=== PATIENT | male | born 1990 | race Two or more races ===

== ENCOUNTER 2025-06-04 11:43 | Inpatient (IN) | payer OTHER ==
[~2025-06-04] VITALS: Ht 175.3 cm; Wt 60.0 kg
--- NOTE | 2025-06-04 12:01 | ED.PDOC ---
GI ASSESSMENT HPI Comments This is a 35 year old male presenting to the ED with chief complaint of abdominal pain. Patient reports that he has been experiencing RLQ abdominal pain since Sunday, worsening over time. Patient relays that he has also had 2 episodes of nausea and vomiting this morning. Patient denies any diarrhea, fever, chills, dizziness, or flank pain. Chief Complaint: Abdominal Pain Time Seen by MD: 11:59 Reviewed Notes: Nurses Notes, Medications, Allergies Allergies: Coded Allergies: NO KNOWN ALLERGIES (Unverified , 06/04/25) Information Source: Patient, Friend Mode of Arrival: Ambulatory Timing: Days Duration: Since onset Prehospital treatment: None Quality: Sharp Vomitus: Watery Stool: Normal Severity: Severe Recent: None Recent Hx of: None Pain Location: RLQ Modifying Factors: Nothing Associated sign and symptoms: Nausea, Vomiting, Abdominal Pain Past Medical History PAST MEDICAL HISTORY: Denies Surgical History: Denies all surgeries Family History Family History: Reviewed,noncontributory to illness Social History Smoker: Non-Smoker Alcohol: Denies ETOH Use Drugs: Denies Drug Use Lives In: Home Constitutional: denies: chills, diaphoresis, fatigue, fever, malaise, sweats, weakness, others EENTM: denies: blurred vision, double vision, ear bleeding, ear discharge, ear drainage, ear pain, ear ringing, eye pain, eye redness, hearing loss, mouth pain, mouth swelling, nasal discharge, nose bleeding, nose congestion, nose pain, photophobia, tearing, throat pain, throat swelling, voice changes, others Respiratory: denies: cough, hemoptysis, orthopnea, SOB at rest, shortness of breath, SOB with excertion, stridor, wheezing, others Cardiovascular: denies: chest pain, dizzy spells, diaphoresis, Dyspnea on exertion, edema, irregular heart beat, left arm pain, lightheadedness, palpitations, PND, syncope, others Gastrointestinal: reports: abdominal pain, nausea, vomiting; denies: abdomen distended, blood streaked bowels, constipated, diarrhea, dysphagia, difficulty swallowing, hematemesis, melena, poor appetite, poor fluid intake, rectal bleeding, rectal pain, others Genitourinary: denies: burning, dysuria, flank pain, frequency, hematuria, incontinence, penile discharge, penile sore, pain, testicle pain, testicle swelling, urgency, others Neurological: denies: dizziness, fainting, headache, left sided numbness, left sided weakness, numbness, paresthesia, pre-existing deficit, right sided numbness, right sided weakness, seizure, speech problems, tingling, tremors, weakness, others Musculoskeletal: denies: back pain, gout, joint pain, joint swelling, muscle p ain, muscle stiffness, neck pain, others Integumetry: denies: bruises, change in color, change in hair/nails, dryness, laceration, lesions, lumps, rash, wounds, others Allergic/Immunocompromised: denies: Difficulty Healing, Frequent Infections, Hives, Itching, others Hematologic/Lymphatic: denies: anemia, blood clots, easy bleeding, easy bruising, swollen glands, others Endocrine: denies: excessive hunger, excessive sweating, excessive thirst, excessive urination, flushing, intolerance to cold, intolerance to heat, unexplained weight gain, unexplained weight loss, others Psychiatric: denies: anxiety, bipolar disorder, depression, hopeless, panic disorder, schizophrenia, sleepless, suicidal, others All Other Systems: Reviewed and Negative Physical Exam General Appearance: Moderate Distress HEENT: Normal ENT Inspection, Pharynx Normal, TMs Normal Neck: Full Range of Motion, Non-Tender, Normal, Normal Inspection Respiratory: Chest Non-Tender, Lungs Clear, No Accessory Muscle Use, No Respiratory Distress, Normal Breath Sounds Cardiovascular: No Edema, No JVD, No Murmur, No Gallop, Normal Peripheral Pulses, Regular Rate/Rhythm Breast Exam: Deferred Gastrointestinal: No Organomegaly, No Pulsatile Mass, Normal Bowel Sounds, RLQ, Soft, Tenderness Genitalia: Deferred Pelvic: Deferred Rectal: Deferred Extremities: No calf tenderness, Normal capillary refill, Normal inspection, Normal range of motion, Non-tender, No pedal edema Musculoskeletal : Location: Right Apperance: Limited ROM, Tenderness: Moderate Neurologic: Alert, finish specialist II-XII nml as Tested, No Motor Deficits, Normal Affect, Normal Mood, No Sensory Deficits Cerebellar Function: Normal Reflexes: Normal Skin: Dry, Normal Color, Warm Lymphatic: No Adenopathy Was a procedure done? Was a procedure done?: No GI differential Dx Differential Diagnosis: Appendicitis, Gastritis/PUD, Gastroenteritis, UTI, Renal Failure, Kidney Stone X-Ray, Labs, Meds, VS Vital Signs Date Time Temp Pulse Resp B/P (MAP) Pulse Ox O2 Delivery O2 Flow Rate FiO2 06/04/25 13:15 93 10 139/95 06/04/25 12:53 93 13 146/105 06/04/25 12:46 Room Air* 0 21 06/04/25 12:45 98.9 97 12 146/105 (119) 99 98.9 06/04/25 11:45 97.4 92 16 135/90 99 97.4 Lab Test 06/04/25 12:15 Range/Units White Blood Count 10.8 4.4-10.8 10^3/uL Red Blood Count 5.54 4.5-5.90 10^6/uL Hemoglobin 17.0 13.5-17.5 g/dL Hematocrit 47.6 41.0-53.0 % Mean Corpuscular Volume 86.0 80.0-100.0 fL Mean Corpuscular Hemoglobin 30.7 28.0-32.0 pg Mean Corpuscular Hemoglobin Concent 35.7 32.0-36.0 g/dL Red Cell Distribution Width 13.1 11.8-14.3 % Platelet Count 227 140-450 10^3/uL Mean Platelet Volume 9.2 6.9-10.8 fL Neutrophils (%) (Auto) 81.6 H 37.0-80.0 % Lymphocytes (%) (Auto) 13.9 10.0-50.0 % Monocytes (%) (Auto) 2.9 0.0-12.0 % Eosinophils (%) (Auto) 1.1 0.0-7.0 % Basophils (%) (Auto) 0.5 0.0-2.0 % Neutrophils # (Auto) 8.9 H 1.6-8.6 10 ^3/uL Lymphocytes # (Auto) 1.5 0.4-5.4 10 ^3/uL Monocytes # (Auto) 0.3 0-1.3 10 ^3/uL Eosinophils # (Auto) 0.1 0-0.8 10 ^3/uL Basophils # (Auto) 0.1 0-0.2 10 ^3/uL Nucleated Red Blood Cells 0.2 % Prothrombin Time 10.9 9.3-11.8 sec Prothrombin Time INR 1.03 0.9-1.15 Activated Partial Thromboplast Time 25.2 24.5-34.5 SEC Sodium Level 144 136-145 mmol/L Potassium Level 3.6 3.5-5.1 mmol/L Chloride Level 108 H 98-107 mmol/L Carbon Dioxide Level 23 20-31 mmol/L Anion Gap 13 5-15 Blood Urea Nitrogen 12 9-23 mg/dL Creatinine 1.33 H 0.700-1.30 mg/dL Glomerular Filtration Rate Calc 72 >90 mL/min BUN/Creatinine Ratio 9.0 L 10.0-20.0 Serum Glucose 130 H 74-106 mg/dL Calcium Level 9.2 8.7-10.4 mg/dL Current Medications Medications (Trade) Dose Ordered Sig/Omer Route Start Time Stop Time Status Last Admin Ondansetron HCl (Zofran) 4 mg ONCE ONCE IV 06/04/25 12:00 06/04/25 12:01 DC 06/04/25 12:53 Sodium Chloride 1,000 ml @ 1,000 mls/hr Q1H ONCE IVB 06/04/25 12:00 06/04/25 12:59 DC 06/04/25 12:54 Morphine Sulfate 4 mg ONCE ONCE IV 06/04/25 12:00 06/04/25 12:01 DC 06/04/25 12:53 Ketorolac Tromethamine (Toradol Injection) 30 mg ONCE ONCE IV 06/04/25 12:45 06/04/25 12:46 DC 06/04/25 12:53 CT Abd/Pel indicates: 1. Moderate right hydronephrosis and hydroureter with obstructing 4.5 mm calculus in the distal right ureter, just proximal to the ureterovesical junction. 2. 4 mm nonobstructing right renal calculus. 3. Additional nonacute findings as described above. IV Hep-Lock was established. The patient was given morphine 4 mg IV push The patient was given Toradol 30 mg IV push The patient was given 1 L bolus of normal saline The patient is still having pain We most likely will repeat the dose of morphine for the pain The patient's CBC and chemistry panel is within normal limits The patient is being admitted at this time A urology consult will be obtained Images Reviewed?: Images reviewed and evaluated by me Time of 1ST Reevaluation: 14:20 Reevaluation 1ST: Improved Patient Education/Counseling: Diagnosis, Treatment, Prognosis Family Education/Counseling: Diagnosis, Treatment, Prognosis SEPSIS Sepsis Screen Date sepsis recognized/suspect: Jun 04, 2025 Time Sepsis recognized/suspect: 1146 Recent Procedure: No On Antibiotic Therapy: No Respiratory Rate >20: No Heart Rate >90: Yes Temp<36 C (96.8 F) or >38.3 C: No SBP <90 or MAP <65 mmHG: No New Acute Mental Status Change: No Is the patient on CPAP, BIPAP,: No Physician Orders Urinalysis (06/04/25 11:58) Ct Ab Pel Wo Con-No Oral Or Iv (06/04/25 11:58) Heplock Iv (06/04/25 11:58) Rehabilitation Manager (06/04/25 11:58) Blood Pressure (06/04/25 11:58) Pulse Oximetry (06/04/25 11:58) Vital Signs Date Time Temp Pulse Resp B/P (MAP) Pulse Ox O2 Delivery O2 Flow Rate FiO2 06/04/25 13:15 93 10 139/95 06/04/25 12:53 93 13 146/105 06/04/25 12:46 Room Air* 0 21 06/04/25 12:45 98.9 97 12 146/105 (119) 99 98.9 06/04/25 11:45 97.4 92 16 135/90 99 97.4 Laboratory Tests Test 06/04/25 12:15 White Blood Count 10.8 10^3/uL (4.4-10.8) Medications Medications Dose Ordered Sig/Omer Route Start Time Stop Time Status Last Admin Dose Admin Ketorolac Tromethamine 30 mg ONCE ONCE IV 06/04/25 12:45 06/04/25 12:46 DC 06/04/25 12:53 Morphine Sulfate 4 mg ONCE ONCE IV 06/04/25 12:00 06/04/25 12:01 DC 06/04/25 12:53 Ondansetron HCl 4 mg ONCE ONCE IV 06/04/25 12:00 06/04/25 12:01 DC 06/04/25 12:53 Sodium Chloride 1,000 ml @ 1,000 mls/hr Q1H ONCE IVB 06/04/25 12:00 06/04/25 12:59 DC 06/04/25 12:54 Departure 1 Departure Time of Disposition: 14:31 Impression: Primary Impression: Intractable abdominal pain Additional Impressions: Hydronephrosis, right Ureterolithiasis Disposition: ADMITTED INPATIENT Admit to: Med Surg Condition: Fair Critical Care Note Critical Care Time?: No Stability Stability form required: Yes Unstable for transfer: ED Physician Assesment (Clinical assesment) Heart Score Heart Score: Heart Score Response (Comments) Value History N/A 0 EKG N/A 0 Age N/A 0 Risk Factors N/A 0 Troponin N/A 0 Total 0 I personally scribed for ALEXANDRA TORRES MD ([email or web address]) on 06/04/25 at 12:01. Electronically submitted by Oleksandr Newton ([email or web address]). I personally scribed for ALEXANDRA TORRES MD ([email or web address]) on 06/04/25 at 12:36. Electronically submitted by Oleksandr Newton ([email or web address]). ALEXANDRA TORRES MD Jun 04, 2025 12:01
[2025-06-04 12:25] LABS: Hematocrit 47.6 % (41.0-53.0); Hemoglobin 17.0 g/dL (13.5-17.5); Mean Corpuscular Hemoglobin 30.7 pg (28.0-32.0); Mean Corpuscular Volume 86.0 fL (80.0-100.0); Nucleated Red Blood Cells % 0.2 %
[2025-06-04 12:34] LABS: Potassium 3.6 mmol/L (3.5-5.1); Sodium 144 mmol/L (136-145)
--- NOTE | 2025-06-04 12:34 | DVH ---
CLINICAL INFORMATION: Right lower quadrant pain. TECHNIQUE: Axial CT images of the abdomen and pelvis were obtained without IV contrast. Coronal and s agittal reformatted images were obtained, reviewed, and stored. Evaluation of the parenchymal organs is limited without IV contrast. Evaluation of the bowel and mesentery is limited without oral contras t. All CT scans at this medical facility are performed using dose modulation techniques as appropriat e to a performed exam including the following: Automated exposure control was utilized; adjustment of the MA and/or KV according to patient size; and use of iterative reconstruction technique. CTDIvol = 7.27 mGy DLP = 384.58 mGy-cm COMPARISON: None FINDINGS: Lung bases: Lung bases are clear. Liver: Grossly unremarkable in its noncontrast enhanced appearance. No abnormal density or focal lesi on identified. Biliary: No calcified gallstones or biliary ductal dilatation. Spleen: Unremarkable. Pancreas: Grossly unremarkable in its noncontrast enhanced appearance. Adrenal glands: 0.8 cm left adrenal nodule is indeterminate based on its density. Kidneys: Moderate right hydronephrosis and hydroureter with obstructing 4.5 mm calculus in the distal right ureter, just proximal to the ureterovesical junction. There is also a small 4 mm nonobstructin g calculus at the midpole of the right kidney. Aorta/Vascular: No aneurysm or significant calcification. Lymph nodes: No mass or lymphadenopathy. Bowel/mesentery: No small bowel obstruction. No free air or free fluid. Appendix is visualized and ap pears unremarkable. Pelvic organs: Grossly unremarkable. Bladder: Unremarkable. No mass. Abdominal wall: No mass or hernia. Bones: No acute fracture or suspicious intraosseous lesion. IMPRESSION: 1. Moderate right hydronephrosis and hydroureter with obstructing 4.5 mm calculus in the distal right ureter, just proximal to the ureterovesical junction. 2. 4 mm nonobstructing right renal calculus. 3. Additional nonacute findings as described above.
[2025-06-04 12:35] LABS: Anion Gap 13 (5-15); Carbon Dioxide 23 mmol/L (20-31)
[2025-06-04 12:36] LABS: Calcium 9.2 mg/dL (8.7-10.4)
[2025-06-04 12:37] LABS: Chloride 108 mmol/L (98-107)
[2025-06-04 12:41] LABS: BUN/Creatinine Ratio 9.0 (10.0-20.0); Blood Urea Nitrogen 12 mg/dL (9-23); INR 1.03 (0.9-1.15); Partial Thromboplastin Time 25.2 SEC (24.5-34.5); Prothrombin Time 10.9 sec (9.3-11.8)
[2025-06-04 12:42] LABS: Glucose 130 mg/dL (74-106)
[2025-06-04] MEDS: ONDANSETRON HCL 4 MG/2 ML VIAL IV ONE (12:53)
[2025-06-04] MEDS: MORPHINE SULFATE 4 MG/ML SYR/VIAL IV ONE (12:53)
[2025-06-04] MEDS: KETOROLAC TROMETH 30 MG/ML 1ML VIAL IV ONE (12:53)
[2025-06-04] MEDS: SODIUM CHLORIDE 0.9% 1,000 ML IVB ONE (12:54)
[2025-06-04] MEDS ORDERED: ACETAMINOPHEN 325 MG TAB PO PRN (14:45)
[2025-06-04] MEDS ORDERED: TEMAZEPAM 15 MG CAP PO PRN (14:45)
[2025-06-04] MEDS ORDERED: ONDANSETRON HCL 4 MG/2 ML VIAL IV PRN (14:45)
[2025-06-04] MEDS ORDERED: MORPHINE SULFATE INJ 2 MG/ml SYRG IV PRN (14:45)
[2025-06-04] MEDS: SODIUM CHLORIDE 0.9% 500 ML IV ONE (14:54)
--- NOTE | 2025-06-04 15:49 | DVHINCON2 ---
Date of service: Jun 04, 2025 Referring Physician Hospitalist Reason for Consultation obstructive uropathy History of Present Illness History Source: Patient, RN Notes, MD Notes Exam Limitations: No limitations HPI 35 year old male presenting to the ED with chief complaint of abdominal pain. Patient reports that he has been experiencing RLQ abdominal pain since Sunday, worsening over time. Patient relays that he has also had 2 episodes of nausea and vomiting this morning. Patient denies any diarrhea, fever, chills, dizziness, or flank evelin H&P Exam Vital Signs Vital Signs Date Time Temp Pulse Resp B/P (MAP) Pulse Ox O2 Delivery O2 Flow Rate FiO2 06/04/25 14:39 98.4 87 18 139/95 (110) 95 98.4 06/04/25 12:46 Room Air* 0 21 General Appeara: Well developed, Well nourished, Normal Appearance Pulmonary/Respiratory: Normal inspection, Normal breath sounds, Chest non- tender, Lungs clear Cardiovascular/Chest: Normal inspection, Regular rate, Normal Rhythm Abdominal Exam: Normal bowel sounds, Soft, No tenderness, No hepatospenomegaly, No masses Neuro/Mental St: Alert, Oriented Appearance: Appropriate appearance, Appropriate insight Eye contact/ Speech: Cooperative, Good eye contact, Normal speech Skin Exam: Normal inspection, Normal color, Warm/dry Labs/Xrays [place] [id number] Ph: [phone] DIAGNOSTIC IMAGING Diagnostic Imaging Report : [id number] Signed PATIENT: JESSIE MCCLELLAN ACCT: [id number] UNIT: [id number] : 1990 LOC: ER ROOM / BED: / AGE / SEX: 35 / M ADM STATUS: REG ER SERVICE 1158 ORDERING PHYSICIAN: ALEXANDRA TORRES MD PROCEDURE(s): ABPL - CT AB PEL WO CON-NO ORAL OR IV REASON: rlq pain ORDER NUMBER(s): [id number], ACCESSION NUMBER(s): [id number] CLINICAL INFORMATION: Right lower quadrant pain. TECHNIQUE: Axial CT images of the abdomen and pelvis were obtained without IV contrast. Coronal and sagittal reformatted images were obtained, reviewed, and stored. Evaluation of the parenchymal organs is limited without IV contrast. Evaluation of the bowel and mesentery is limited without oral contrast. All CT scans at this medical facility are performed using dose modulation techniques as appropriate to a performed exam including the following: Automated exposure control was utilized; adjustment of the MA and/or KV according to patient size; and use of iterative reconstruction technique. CTDIvol = 7.27 mGy DLP = 384.58 mGy-cm COMPARISON: None FINDINGS: Lung bases: Lung bases are clear. Liver: Grossly unremarkable in its noncontrast enhanced appearance. No abnormal density or focal lesion identified. Biliary: No calcified gallstones or biliary ductal dilatation. Spleen: Unremarkable. Pancreas: Grossly unremarkable in its noncontrast enhanced appearance. Adrenal glands: 0.8 cm left adrenal nodule is indeterminate based on its density. Kidneys: Moderate right hydronephrosis and hydroureter with obstructing 4.5 mm calculus in the distal right ureter, just proximal to the ureterovesical junction. There is also a small 4 mm nonobstructing calculus at the midpole of the right kidney. Aorta/Vascular: No aneurysm or significant calcification. Lymph nodes: No mass or lymphadenopathy. Bowel/mesentery: No small bowel obstruction. No free air or free fluid. Appendix is visualized and appears unremarkable. Pelvic organs: Grossly unremarkable. Bladder: Unremarkable. No mass. Abdominal wall: No mass or hernia. Bones: No acute fracture or suspicious intraosseous lesion. IMPRESSION: 1. Moderate right hydronephrosis and hydroureter with obstructing 4.5 mm calculus in the distal right ureter, just proximal to the ureterovesical junction. 2. 4 mm nonobstructing right renal calculus. 3. Additional nonacute findings as described above. ATED BY: JER PERALTA DO DICTATED DATE/TIME: 06/04/25 1231 SIGNED BY: JER PERALTA DO SIGNED DATE/TIME: 06/04/25 1231 CC: Labs Test 06/04/25 12:15 Range/Units White Blood Count 10.8 4.4-10.8 10^3/uL Red Blood Count 5.54 4.5-5.90 10^6/uL Hemoglobin 17.0 13.5-17.5 g/dL Hematocrit 47.6 41.0-53.0 % Mean Corpuscular Volume 86.0 80.0-100.0 fL Mean Corpuscular Hemoglobin 30.7 28.0-32.0 pg Mean Corpuscular Hemoglobin Concent 35.7 32.0-36.0 g/dL Red Cell Distribution Width 13.1 11.8-14.3 % Platelet Count 227 140-450 10^3/uL Mean Platelet Volume 9.2 6.9-10.8 fL Neutrophils (%) (Auto) 81.6 H 37.0-80.0 % Lymphocytes (%) (Auto) 13.9 10.0-50.0 % Monocytes (%) (Auto) 2.9 0.0-12.0 % Eosinophils (%) (Auto) 1.1 0.0-7.0 % Basophils (%) (Auto) 0.5 0.0-2.0 % Neutrophils # (Auto) 8.9 H 1.6-8.6 10 ^3/uL Lymphocytes # (Auto) 1.5 0.4-5.4 10 ^3/uL Monocytes # (Auto) 0.3 0-1.3 10 ^3/uL Eosinophils # (Auto) 0.1 0-0.8 10 ^3/uL Basophils # (Auto) 0.1 0-0.2 10 ^3/uL Nucleated Red Blood Cells 0.2 % Prothrombin Time 10.9 9.3-11.8 sec Prothrombin Time INR 1.03 0.9-1.15 Activated Partial Thromboplast Time 25.2 24.5-34.5 SEC Sodium Level 144 136-145 mmol/L Potassium Level 3.6 3.5-5.1 mmol/L Chloride Level 108 H 98-107 mmol/L Carbon Dioxide Level 23 20-31 mmol/L Anion Gap 13 5-15 Blood Urea Nitrogen 12 9-23 mg/dL Creatinine 1.33 H 0.700-1.30 mg/dL Glomerular Filtration Rate Calc 72 >90 mL/min BUN/Creatinine Ratio 9.0 L 10.0-20.0 Serum Glucose 130 H 74-106 mg/dL Calcium Level 9.2 8.7-10.4 mg/dL Assessment/Plan Problem List: (1) Ureterolithiasis (2) Hydronephrosis, right (3) Intractable abdominal pain Plan expulsive measures pain meds prn outpt urology f/u Plan discussed with: Patient, Other MICHA MCDERMOTT [employer] OPERATOR Jun 04, 2025 15:49
[2025-06-04 15:52] VITALS: PULSE 99; RESP 18; O2SAT 96
[2025-06-04 16:27] LABS: Urine Amorphous Crystal FEW /hpf (None Seen); Urine Protein, UAD Negative (Negative)
[2025-06-04 18:11] VITALS: BP 145/95; PULSE 91; RESP 18; TEMP 98.1; O2SAT 98
[2025-06-04] MEDS: TAMSULOSIN HYDROCHLORIDE 0.4 MG CAP PO SCH (18:34)
--- NOTE | 2025-06-04 19:42 | DVHHP2 ---
History of Present Illness Reason for Visit: Abdominal pain History of Present Illness 35-year-old male presents for evaluation of abdominal pain. Patient reports a three day history of right lower quadrant abdominal pain which has been worsening over the past two days. Reports episodes of nausea with vomiting. Denies fever or chills. No dysuria or hematuria. Past Medical History None Past Surgical History None Family History Noncontributory Smoke: No ALCOHOL: none Drugs: None Lives: with Family Review of Systems Review of Systems Review of systems are currently negative otherwise addressed in HPI. Allergies: Coded Allergies: NO KNOWN ALLERGIES (Unverified , 06/04/25) Medications Current Medications Medications Dose Ordered Sig/Omer Route Start Time Stop Time Status Last Admin Dose Admin Tamsulosin HCl 0.4 mg QPM PO 06/04/25 18:00 06/04/25 18:34 0.4 MG Acetaminophen/ Hydrocodone Bitart 1 tab Q4HP PRN PO 06/04/25 14:45 Temazepam 15 mg QHSP PRN PO 06/04/25 14:45 Ondansetron HCl 4 mg Q4HP PRN IV 06/04/25 14:45 Acetaminophen 650 mg Q6HP PRN PO 06/04/25 14:45 Morphine Sulfate 2 mg Q6HPRN PRN IV 06/04/25 14:45 UNV Morphine Sulfate 2 mg Q6HPRN PRN IV 06/04/25 15:00 Exam Vital Signs Vital Signs Date Time Temp Pulse Resp B/P (MAP) Pulse Ox O2 Delivery O2 Flow Rate FiO2 06/04/25 18:11 98.1 91 18 145/95 (112) 98 98.1 06/04/25 15:52 Room Air* 0 21 Exam Gen: 35-year-old male in mild Skin: Warm, dry, normal color and texture, no rash. HEENT: Normocephalic atraumatic, mucous membranes moist and pink. Neck: Cervical and supraclavicular nodes normal without enlargement, trachea is midline, thyroid gland is normal without masses. Pulmonary: Clear to auscultation and percussion bilaterally. Cardiac: Regular rate and rhythm. No murmur Abdomen: Soft, nontender, nondistended, bowel sounds present all 4 quadrants, no guarding, no rigidity, no organomegaly. Extremities: No cyanosis, clubbing, no edema Neuro: Cranial nerves II through XII grossly intact, normal affect and speech, no focal motor deficits. Labs/Xrays Labs Test 06/04/25 14:03 06/04/25 12:15 Range/Units Urine Color Light-yellow Yellow Urine Clarity Clear Clear Urine pH 7.5 5.0-9.0 Urine Specific [place] 1.015 1.001-1.035 Urine Protein Negative Negative Urine Ketones Negative Negative Urine Blood 2+ H Negative /uL Urine Nitrite Negative Negative Urine Bilirubin Negative Negative Urine Urobilinogen Normal Negative mg/dL Urine Leukocyte Esterase Negative Negative /uL Urine RBC 149 0 - 3 /hpf Urine Microscopic WBC 2 0-3 /HPF Urine Squamous Epithelial Cells Few <5 /hpf Urine Amorphous Crystals Few None Seen /hpf Urine Bacteria Few H None Seen /hpf Urine Glucose Normal Normal mg/dL White Blood Count 10.8 4.4-10.8 10^3/uL Red Blood Count 5.54 4.5-5.90 10^6/uL Hemoglobin 17.0 13.5-17.5 g/dL Hematocrit 47.6 41.0-53.0 % Mean Corpuscular Volume 86.0 80.0-100.0 fL Mean Corpuscular Hemoglobin 30.7 28.0-32.0 pg Mean Corpuscular Hemoglobin Concent 35.7 32.0-36.0 g/dL Red Cell Distribution Width 13.1 11.8-14.3 % Platelet Count 227 140-450 10^3/uL Mean Platelet Volume 9.2 6.9-10.8 fL Neutrophils (%) (Auto) 81.6 H 37.0-80.0 % Lymphocytes (%) (Auto) 13.9 10.0-50.0 % Monocytes (%) (Auto) 2.9 0.0-12.0 % Eosinophils (%) (Auto) 1.1 0.0-7.0 % Basophils (%) (Auto) 0.5 0.0-2.0 % Neutrophils # (Auto) 8.9 H 1.6-8.6 10 ^3/uL Lymphocytes # (Auto) 1.5 0.4-5.4 10 ^3/uL Monocytes # (Auto) 0.3 0-1.3 10 ^3/uL Eosinophils # (Auto) 0.1 0-0.8 10 ^3/uL Basophils # (Auto) 0.1 0-0.2 10 ^3/uL Nucleated Red Blood Cells 0.2 % Prothrombin Time 10.9 9.3-11.8 sec Prothrombin Time INR 1.03 0.9-1.15 Activated Partial Thromboplast Time 25.2 24.5-34.5 SEC Sodium Level 144 136-145 mmol/L Potassium Level 3.6 3.5-5.1 mmol/L Chloride Level 108 H 98-107 mmol/L Carbon Dioxide Level 23 20-31 mmol/L Anion Gap 13 5-15 Blood Urea Nitrogen 12 9-23 mg/dL Creatinine 1.33 H 0.700-1.30 mg/dL Glomerular Filtration Rate Calc 72 >90 mL/min BUN/Creatinine Ratio 9.0 L 10.0-20.0 Serum Glucose 130 H 74-106 mg/dL Calcium Level 9.2 8.7-10.4 mg/dL SEPSIS Sepsis Screen Date sepsis recognized/suspect: Jun 04, 2025 Time Sepsis recognized/suspect: 1145 Recent Procedure: No On Antibiotic Therapy: No Respiratory Rate >20: No Heart Rate >90: Yes Temp<36 C (96.8 F) or >38.3 C: No SBP <90 or MAP <65 mmHG: No New Acute Mental Status Change: No Is the patient on CPAP, BIPAP,: No Physician Orders Ct Ab Pel Wo Con-No Oral Or Iv (06/04/25 11:58) Heplock Iv (06/04/25 11:58) Model And Pattern Supervisor (06/04/25 11:58) Blood Pressure (06/04/25 11:58) Pulse Oximetry (06/04/25 11:58) * Urology Consult (06/04/25 14:39) Tamsulosin Hydrochloride (Flomax) (06/04/25 18:00) Basic Metabolic Panel (06/05/25 04:00) Admit (06/04/25 14:39) Hydrocodone-Acet 5/325mg Tab (Page 5/32 (06/04/25 14:45) Temazepam (Restoril) (06/04/25 14:45) Ondansetron Hcl (Zofran) (06/04/25 14:45) Complete Blood Count (06/05/25 04:00) Condition: Stable (06/04/25 14:39) Acetaminophen Tablet (Tylenol Tablet) (06/04/25 14:45) Bedrest With Bathroom Privileg (06/04/25 14:39) Morphine Sulfate Injection (06/04/25 15:00) Strain All Urine (06/04/25 ) Strain All Urine For Stones (06/04/25 15:45) Vital Signs Date Time Temp Pulse Resp B/P (MAP) Pulse Ox O2 Delivery O2 Flow Rate FiO2 06/04/25 18:11 98.1 91 18 145/95 (112) 98 98.1 06/04/25 17:35 75 17 117/79 (92) 96 06/04/25 15:52 99.0 99 18 123/92 (102) 96 99.0 06/04/25 15:52 99 18 96 Room Air* 0 21 06/04/25 14:39 98.4 87 18 139/95 (110) 95 98.4 06/04/25 13:15 93 10 139/95 06/04/25 12:53 93 13 146/105 06/04/25 12:46 Room Air* 0 21 06/04/25 12:45 98.9 97 12 146/105 (119) 99 98.9 06/04/25 11:45 97.4 92 16 135/90 99 97.4 Laboratory Tests Test 06/04/25 12:15 White Blood Count 10.8 10^3/uL (4.4-10.8) Medications Medications Dose Ordered Sig/Omer Route Start Time Stop Time Status Last Admin Dose Admin Ketorolac Tromethamine 30 mg ONCE ONCE IV 06/04/25 12:45 06/04/25 12:46 DC 06/04/25 12:53 30 MG Morphine Sulfate 4 mg ONCE ONCE IV 06/04/25 12:00 06/04/25 12:01 DC 06/04/25 12:53 4 MG Ondansetron HCl 4 mg ONCE ONCE IV 06/04/25 12:00 06/04/25 12:01 DC 06/04/25 12:53 4 MG Sodium Chloride 500 ml @ 500 mls/hr Q1H ONCE IV 06/04/25 14:45 06/04/25 15:44 DC 06/04/25 14:54 500 MLS/HR Sodium Chloride 1,000 ml @ 1,000 mls/hr Q1H ONCE IVB 06/04/25 12:00 06/04/25 12:59 DC 06/04/25 12:54 1,000 MLS/HR Tamsulosin HCl 0.4 mg QPM PO 06/04/25 18:00 06/04/25 18:34 0.4 MG Assessment/Plan Assessment/Plan Assessment Ureterolithiasis Right hydronephrosis Plan Admit the patient to Med surge to the hospitalist Pain management Urology consult Flomax/IV fluids Continue treatment per orders. Plan discussed with: Patient My Orders Orders - ARETHA SANDOVAL Procedure Category Date Status Time * Urology Consult CONS 06/04/25 Transmitted 14:39 Tamsulosin PHA 06/04/25 In Process Hydrochloride (Flomax) 18:00 Basic Metabolic Panel LAB 06/05/25 Verified 04:00 Admit ADMIT 06/04/25 Transmitted 14:39 Hydrocodone-Acet PHA 06/04/25 In Process 5/325mg Tab (Page 14:45 Temazepam (Restoril) PHA 06/04/25 In Process 14:45 Ondansetron Hcl PHA 06/04/25 In Process (Zofran) 14:45 Complete Blood Count LAB 06/05/25 Verified 04:00 Condition: Stable MARGARITO 06/04/25 In Process 14:39 Acetaminophen Tablet PHA 06/04/25 In Process (Tylenol Tablet) 14:45 Bedrest With Bathroom MARGARITO 06/04/25 In Process Privileg 14:39 Morphine Sulfate PHA 06/04/25 In Process Injection 15:00 Date of Service: Jun 04, 2025 Billing Provider: ARETHA SANDOVAL Common Visit Codes: [id number] INP/OBS CARE (MOD) ARETHA SANDOVAL Jun 04, 2025 19:42
[2025-06-04 19:48] VITALS: PULSE 87; RESP 18; O2SAT 98
[2025-06-04 21:00] VITALS: BP 121/86; PULSE 80; RESP 18; TEMP 98.6; O2SAT 99
[2025-06-04 21:20] VITALS: BP 121/86; PULSE 80; RESP 18; TEMP 98.6; O2SAT 99
[2025-06-04 23:20] VITALS: BP 126/87; PULSE 69; RESP 18; TEMP 98.4; O2SAT 98
[2025-06-05] VITALS (9 sets, daily range): BP systolic 110–127; BP diastolic 76–94; PULSE 52–88; RESP 16–20; TEMP 97.8–98.5; O2SAT 97–99
[2025-06-05 05:48] LABS: Potassium 3.7 mmol/L (3.5-5.1); Sodium 144 mmol/L (136-145)
[2025-06-05 05:49] LABS: Anion Gap 11 (5-15); Carbon Dioxide 24 mmol/L (20-31)
[2025-06-05 05:50] LABS: Calcium 8.8 mg/dL (8.7-10.4)
[2025-06-05 05:54] LABS: Glucose 92 mg/dL (74-106); Hematocrit 44.2 % (41.0-53.0); Hemoglobin 15.7 g/dL (13.5-17.5); Mean Corpuscular Hemoglobin 30.8 pg (28.0-32.0); Mean Corpuscular Volume 86.8 fL (80.0-100.0); Nucleated Red Blood Cells % 0.1 %
[2025-06-05 05:55] LABS: BUN/Creatinine Ratio 8.4 (10.0-20.0); Blood Urea Nitrogen 10 mg/dL (9-23); Chloride 109 mmol/L (98-107)
[2025-06-05] MEDS: MORPHINE SULFATE 4 MG/ML SYR/VIAL IV PRN (06:12)
[2025-06-05] MEDS: HYDROcodone-ACET 5/325MG TAB PO PRN (08:21)
--- NOTE | 2025-06-05 15:38 | DVHPN2 ---
Reviewed: Care Plan, H&P, Labs, Medications, Previous Orders, Radiology Changes from previous H/P or p: No Changes General: Per HPI Objective Vitals Vital Signs Date Time Temp Pulse Resp B/P (MAP) Pulse Ox O2 Delivery O2 Flow Rate FiO2 06/05/25 13:00 98.2 88 20 127/84 (98) 98 98.2 06/05/25 08:00 Room Air* 0 21 Intake/Output Intake and Output 06/05/25 07:00 Intake Total 1000 ml Output Total 300 ml Balance 700 ml Intake Oral 0 ml IV Total 1000 ml Output Urine Total 300 ml General Appearance: Alert, Oriented X3, Cooperative, No acute distress Medications Current Medications Medications Dose Ordered Sig/Omer Route Start Time Stop Time Status Last Admin Dose Admin Tamsulosin HCl 0.4 mg QPM PO 06/04/25 18:00 06/04/25 18:34 0.4 MG Acetaminophen/ Hydrocodone Bitart 1 tab Q4HP PRN PO 06/04/25 14:45 06/05/25 08:21 1 TAB Temazepam 15 mg QHSP PRN PO 06/04/25 14:45 Ondansetron HCl 4 mg Q4HP PRN IV 06/04/25 14:45 Acetaminophen 650 mg Q6HP PRN PO 06/04/25 14:45 Morphine Sulfate 2 mg Q6HPRN PRN IV 06/04/25 14:45 UNV Morphine Sulfate 2 mg Q6HPRN PRN IV 06/04/25 15:00 06/05/25 06:12 2 MG Laboratory Results Laboratory Tests 06/05/25 05:03 Chemistry Test 06/05/25 05:03 Calcium Level 8.8 mg/dL (8.7-10.4) Urinalysis Test 06/04/25 14:03 Urine Color Light-yellow (Yellow) Urine Clarity Clear (Clear) Urine pH 7.5 (5.0-9.0) Urine Specific [place] 1.015 (1.001-1.035) Urine Protein Negative (Negative) Urine Ketones Negative (Negative) Urine Blood 2+ /uL (Negative) H Urine Nitrite Negative (Negative) Urine Bilirubin Negative (Negative) Urine Urobilinogen Normal mg/dL (Negative) Urine Leukocyte Esterase Negative /uL (Negative) Urine RBC 149 /hpf (0 - 3) Urine Microscopic WBC 2 /HPF (0-3) Urine Squamous Epithelial Cells Few /hpf (<5) Urine Amorphous Crystals Few /hpf (None Seen) Urine Bacteria Few /hpf (None Seen) H Urine Glucose Normal mg/dL (Normal) Labs and/or images reviewed: Labs reviewed by me, Image(s) reviewed by me Assessment/Plan Assessment/Plan 35-year-old male presents for evaluation of abdominal pain. Patient reports a three day history of right lower quadrant abdominal pain which has been worsening over the past two days. Reports episodes of nausea with vomiting. Denies fever or chills. No dysuria or hematuria. 1. Moderate right hydronephrosis and hydroureter with obstructing 4.5 mm calculus in the distal right ureter, just proximal to the ureterovesical junction. 2. 4 mm nonobstructing right renal calculus. 3. Additional nonacute findings as described above. acute abd pain ramy Ureterolithiasis Right hydronephrosis pain control expulsive measure urology on consult Plan discussed with: Patient My Orders Orders - SARMAD JOSE DO Procedure Category Date Status Time Cardiac DIET 06/05/25 Transmitted Diet-2gna,Lofat,Lochol Lunch Date of Service: Jun 05, 2025 Billing Provider: SARMAD JOSE DO Common Visit Codes: [id number] INP/OBS CARE(HIGH) SARMAD JOSE DO Jun 05, 2025 15:38
[2025-06-05] MEDS: SODIUM CHLORIDE 0.9% 3,000 ML IV ONE (16:45)
[2025-06-05] MEDS: SODIUM CHLORIDE 0.9% 1,000 ML IV SCH (16:45)
[2025-06-05] MEDS: ARTIFICIAL TEARS 15ml EACHEYE PRN (21:40)
[2025-06-06] VITALS (7 sets, daily range): BP systolic 113–128; BP diastolic 58–102; PULSE 69–91; RESP 16–20; TEMP 97.7–98.1; O2SAT 90–99
[2025-06-07 05:00] VITALS: BP 111/79; PULSE 72; RESP 15; TEMP 97.9; O2SAT 98
[2025-06-07 08:00] VITALS: PULSE 69; RESP 18; O2SAT 99
[2025-06-07 09:00] VITALS: BP 117/86; PULSE 70; RESP 14; TEMP 97.8; O2SAT 98
[2025-06-07 13:00] VITALS: BP 127/92; PULSE 64; RESP 18; TEMP 98.1; O2SAT 100
[2025-06-07 17:00] VITALS: BP 124/92; PULSE 79; RESP 16; TEMP 98.3; O2SAT 99
--- NOTE | 2025-06-08 20:27 | DVHPN2 ---
Reviewed: Care Plan, H&P, Labs, Medications, Previous Orders, Radiology Changes from previous H/P or p: No Changes General: Per HPI Objective Vitals Vital Signs Date Time Temp Pulse Resp B/P (MAP) Pulse Ox O2 Delivery O2 Flow Rate FiO2 06/07/25 17:00 98.3 79 16 124/92 (103) 99 98.3 06/07/25 08:00 Room Air* 0 21 Intake/Output Intake and Output 06/08/25 07:00 Intake Total 240 ml Balance 240 ml Intake Oral 240 ml # Voids 3 # Bowel Movements 1 General Appearance: Alert, Oriented X3, Cooperative, No acute distress Medications Current Medications Medications Dose Ordered Sig/Omer Route Start Time Stop Time Status Last Admin Dose Admin Morphine Sulfate 2 mg Q6HPRN PRN IV 06/04/25 14:45 UNV Laboratory Results Laboratory Tests 06/05/25 05:03 Urinalysis Test 06/04/25 14:03 Urine Color Light-yellow (Yellow) Urine Clarity Clear (Clear) Urine pH 7.5 (5.0-9.0) Urine Specific [place] 1.015 (1.001-1.035) Urine Protein Negative (Negative) Urine Ketones Negative (Negative) Urine Blood 2+ /uL (Negative) H Urine Nitrite Negative (Negative) Urine Bilirubin Negative (Negative) Urine Urobilinogen Normal mg/dL (Negative) Urine Leukocyte Esterase Negative /uL (Negative) Urine RBC 149 /hpf (0 - 3) Urine Microscopic WBC 2 /HPF (0-3) Urine Squamous Epithelial Cells Few /hpf (<5) Urine Amorphous Crystals Few /hpf (None Seen) Urine Bacteria Few /hpf (None Seen) H Urine Glucose Normal mg/dL (Normal) Labs and/or images reviewed: Labs reviewed by me, Image(s) reviewed by me Assessment/Plan Assessment/Plan 35-year-old male presents for evaluation of abdominal pain. Patient reports a three day history of right lower quadrant abdominal pain which has been worsening over the past two days. Reports episodes of nausea with vomiting. Denies fever or chills. No dysuria or hematuria. 1. Moderate right hydronephrosis and hydroureter with obstructing 4.5 mm calculus in the distal right ureter, just proximal to the ureterovesical junction. 2. 4 mm nonobstructing right renal calculus. 3. Additional nonacute findings as described above. acute abd pain ramy Ureterolithiasis Right hydronephrosis 06/05/2025 pain control expulsive measure urology on consult 06/06/2025: pain improving. continue with current tx. urology on board Plan discussed with: Patient Date of Service: Jun 06, 2025 Billing Provider: SARMAD JOSE DO Common Visit Codes: [id number] INP/OBS CARE(HIGH) SARMAD JOSE DO Jun 08, 2025 20:27
--- NOTE | 2025-06-08 20:29 | DVHDS2 ---
Discharge Summary Date of Admission Jun 04, 2025 at 14:39 Date of Discharge: Jun 07, 2025 Labs/Diagnostic Data: Laboratory Results Test 06/05/25 05:03 06/04/25 14:03 06/04/25 12:15 White Blood Count 6.2 10^3/uL (4.4-10.8) Red Blood Count 5.09 10^6/uL (4.5-5.90) Hemoglobin 15.7 g/dL (13.5-17.5) Hematocrit 44.2 % (41.0-53.0) Mean Corpuscular Volume 86.8 fL (80.0-100.0) Mean Corpuscular Hemoglobin 30.8 pg (28.0-32.0) Mean Corpuscular Hemoglobin Concent 35.5 g/dL (32.0-36.0) Red Cell Distribution Width 13.0 % (11.8-14.3) Platelet Count 192 10^3/uL (140-450) Mean Platelet Volume 9.6 fL (6.9-10.8) Neutrophils (%) (Auto) 58.3 % (37.0-80.0) Lymphocytes (%) (Auto) 29.8 % (10.0-50.0) Monocytes (%) (Auto) 7.2 % (0.0-12.0) Eosinophils (%) (Auto) 3.4 % (0.0-7.0) Basophils (%) (Auto) 1.3 % (0.0-2.0) Neutrophils # (Auto) 3.6 10 ^3/uL (1.6-8.6) Lymphocytes # (Auto) 1.9 10 ^3/uL (0.4-5.4) Monocytes # (Auto) 0.4 10 ^3/uL (0-1.3) Eosinophils # (Auto) 0.2 10 ^3/uL (0-0.8) Basophils # (Auto) 0.1 10 ^3/uL (0-0.2) Nucleated Red Blood Cells 0.1 % Sodium Level 144 mmol/L (136-145) Potassium Level 3.7 mmol/L (3.5-5.1) Chloride Level 109 mmol/L (98-107) Carbon Dioxide Level 24 mmol/L (20-31) Anion Gap 11 (5-15) Blood Urea Nitrogen 10 mg/dL (9-23) Creatinine 1.19 mg/dL (0.700-1.30) Glomerular Filtration Rate Calc 83 mL/min (>90) BUN/Creatinine Ratio 8.4 (10.0-20.0) Serum Glucose 92 mg/dL (74-106) Calcium Level 8.8 mg/dL (8.7-10.4) Urine Color Light-yellow (Yellow) Urine Clarity Clear (Clear) Urine pH 7.5 (5.0-9.0) Urine Specific [place] 1.015 (1.001-1.035) Urine Protein Negative (Negative) Urine Ketones Negative (Negative) Urine Blood 2+ /uL (Negative) Urine Nitrite Negative (Negative) Urine Bilirubin Negative (Negative) Urine Urobilinogen Normal mg/dL (Negative) Urine Leukocyte Esterase Negative /uL (Negative) Urine RBC 149 /hpf (0 - 3) Urine Microscopic WBC 2 /HPF (0-3) Urine Squamous Epithelial Cells Few /hpf (<5) Urine Amorphous Crystals Few /hpf (None Seen) Urine Bacteria Few /hpf (None Seen) Urine Glucose Normal mg/dL (Normal) Prothrombin Time 10.9 sec (9.3-11.8) Prothrombin Time INR 1.03 (0.9-1.15) Activated Partial Thromboplast Time 25.2 SEC (24.5-34.5) Other Laboratory Tests 06/05/25 05:03 Brief Hx & Hospital Course: 35-year-old male presents for evaluation of abdominal pain. Patient reports a three day history of right lower quadrant abdominal pain which has been worsening over the past two days. Reports episodes of nausea with vomiting. Denies fever or chills. No dysuria or hematuria. 1. Moderate right hydronephrosis and hydroureter with obstructing 4.5 mm calculus in the distal right ureter, just proximal to the ureterovesical junction. 2. 4 mm nonobstructing right renal calculus. 3. Additional nonacute findings as described above. acute abd pain ramy Ureterolithiasis Right hydronephrosis 06/05/2025 pain control expulsive measure urology on consult 06/07/2025 improved discharged to home Condition at Discharge: Fair Final Diagnosis/Problems List see above Discharge Disposition: Home Discharge Instruct/Medications Diet: Regular Activity: No Restrictions, As Tolerated Follow Up/Referral: Follow up with primary Medications: No new medications. No Active Prescriptions or Reported Meds Discharge Statement: "Patient was advised to return to the ER or call 911 if any headaches, dizziness, shortness of breath, chest pain, abdominal pain, bleeding, fevers, or worsening of medical condition. Patient was counseled about treatment plan, medications, possible side effects, patientverbalized understanding. All questions were answered to the best of my ability. This discharge took greater then 30 minutes in planning, reviewing documentation, counseling the patient, and discussing with other team members." ASSESSMENT ASSESSMENT Assessment Date of Service: Jun 07, 2025 Billing Provider: SARMAD JOSE DO Common Visit Codes: [id number] DISCH DAY >30min SARMAD JOSE DO Jun 08, 2025 20:29
== END 2025-06-07 19:04 | disposition home or self-care (01) | DRG 694 ==
LOC: ER 11:43 → OVERFLOW 14:39 → WEST WING 22:57
PROVIDERS: ADMIT Internal Medicine; ATTEND Internal Medicine
DX: N13.2 Hydronephrosis with renal and ureteral calculous obstruction (principal); N17.9 Acute kidney failure, unspecified; Z79.899 Other long term (current) drug therapy
CPT/HCPCS: 36415; 74176; 80048; 81001; 85025; 85610; 85730; 96374; 96375; G0378; J1885; J2405